=== PATIENT | male | born 1940 | race Caucasian/White ===

== ENCOUNTER 2020-07-27 16:06 | Inpatient (IN) | payer MEDICARE, OTHER ==
[~2020-07-27] VITALS: Ht 182.9 cm; Wt 93.2 kg
[2020-07-27] VITALS (82 sets, daily range): BP systolic 143; BP diastolic 85; PULSE 77; O2SAT 91–99
[~2020-07-27 16:06] MED LIST: ALEVE 220MG220 MG PO; ALLEGRA30 MG; CEPHALEXIN500 M1 PO; CILOXAN 10 ML10 ML OD; FISH OIL SUPER1 SGL PO; LIPITOR 10MG10 MG PO; LUTEIN8MG PO; MULTIVITAMIN1 TA1 PO; NIACIN100 MG PO; PLAVIX 75MG TAB75 MG PO; SYNTHROID0.05 MG/TA PO; TRIGLIDE50 MG PO; ZOCOR 80MG80 MG PO
[2020-07-27 16:27] LABS: HEMATOCRIT 44.8 % (42.0-52.0); HEMOGLOBIN 14.9 g/dl (13.5-18.0); MEAN CELL VOLUME 94 fl (80.0-100.0); MEAN CORPUSCULAR HEMOGLOBIN 31 pg (27.0-31.0); MEAN CORPUSCULAR HGB CONC 33 g/dl (33.0-37.0); MEAN PLATELET VOLUME 9.8 fl (7.4-10.4); PLATELET COUNT 206 K/mm3 (130-400); RED BLOOD COUNT 4.79 M/mm3 (4.20-5.60)
[2020-07-27 16:33] LABS: PROTHROMBIN TIME 11.3 SECONDS (9.7-12.8)
[2020-07-27 16:39] LABS: BAND 1 % (0-10); EOSINOPHIL 27 % (0-4); LYMPHOCYTE 25 % (20.0-51.0); NEUTROPHILS 41 % (42.0-75.2); PLATELET ESTIMATE NORMAL (NORMAL)
[2020-07-27 16:40] LABS: ALANINE AMINOTRANSFERASE 25 U/L (4-49); ALBUMIN 3.8 gm/dL (3.5-5.0); ALKALINE PHOSPHATASE 93 U/L (50-136); ANION GAP 8 mmol/L (7-16); AST,SGOT 27 U/L (15-37); BILIRUBIN,TOTAL < 0.1 mg/dL (0.0-1.0); BLOOD UREA NITROGEN 23 mg/dL (9-20); CALCIUM 8.7 mg/dL (8.4-10.2); CARBON DIOXIDE 25 mmol/L (22-30); CHLORIDE 106 mmol/L (98-107); CREATININE, serum 0.88 (0.66-1.25); GLUCOSE 124 mg/dL (74-106); POTASSIUM 4.1 mmol/L (3.4-5.0); SODIUM 139 mmol/L (137-145); TOTAL PROTEIN 7.4 gm/dL (6.4-8.2)
[2020-07-27 16:42] LABS: C-REACTIVE PROTEIN < 0.5 mg/dL (0.0-0.9)
[2020-07-27 16:56] LABS: COLLECTION METHOD CLEAN CATCH
[2020-07-27 17:03] LABS: MUCOUS Present /lpf; PH 6 (5-8); SQUAMOUS EPITHELIAL 0-2 /hpf; URINE APPEARANCE Clear; URINE BACTERIA None Seen /hpf; URINE BILIRUBIN Negative (NEGATIVE); URINE BLOOD Negative (NEGATIVE); URINE COLOR Yellow; URINE GLUCOSE Negative (NEGATIVE); URINE KETONE Negative (NEGATIVE); URINE LEUKOCYTE ESTERASE Negative (NEGATIVE); URINE NITRATE Negative (NEGATIVE); URINE PROTEIN(semi-quant) Negative (NEGATIVE); URINE RBC 0-2 /hpf; URINE UROBILINOGEN Negative (NEGATIVE)
[2020-07-27] MEDS ORDERED: ZOCOR 40MG40 MG PO (18:14)
[2020-07-27] MEDS ORDERED: FLOMAX 0.40.4 MG/CAP PO (18:15)
[2020-07-27] MEDS ORDERED: GLUCOPHAGE500 MG/TAB PO (18:15)
[2020-07-27] MEDS ORDERED: ASPIRIN 81M81 MG/TA2 PO (18:15)
[2020-07-27] MEDS ORDERED: BENADRYL25 M2 PO (18:16)
[2020-07-27] MEDS ORDERED: XYZAL5 MG PO (18:16)
[2020-07-27] MEDS ORDERED: ONE-A-DAY ESSE1 EACH PO (18:17)
[2020-07-27] MEDS ORDERED: SYNTHROID0.075 MG/T PO (21:15)
[2020-07-27] MEDS ORDERED: GLUCOPHAGE XR500 M1 PO (21:16)
[2020-07-27] MEDS ORDERED: VITAMIN FLUSH-F1 CAP PO (21:17)
[2020-07-27 21:42] LABS: MAGNESIUM 2.2 mg/dL (1.6-2.3); PHOSPHOROUS 3.4 mg/dL (2.5-4.5)
[2020-07-27 22:14] LABS: TSH w REFLEX 1.96 uIU/mL (0.465-4.680)
--- NOTE | 2020-07-27 23:29 | NUR ---
Patient arrived from the ER via stretcher at 2145. He is on room air and oxygen saturation is above 95%. His blood pressure was 143/98 and HR is 68. He denies pain other than on his knee that he has been experiencing for a while, whcih he takes tylenol and an ice pack at home for. I confirmed with Lubna TROY to stop the Nicarapine drip and she said yes, if I need something for blood pressure, I have a labatalol PRN. He has IV fluids running at 75. His neuro status has remained consistant for the last two hours. He does have an asymetrical smile. The left side is still droopy, the left arm and legs does drift a bit. His vision on the left side is better but he still complains of a "fat tongue" since prior to his arrival. Dr [facility] ([facility]) just phoned for an update and update was given.
[2020-07-28] VITALS (478 sets, daily range): BP systolic 140–164; BP diastolic 54–94; PULSE 69–84; TEMP 97.7–98.5; O2SAT 88–99
--- NOTE | 2020-07-28 02:56 | NUR ---
Every hour I've been doing the Neuro checks. The patient stated he doesn't feel any worse, just the same. I did notice a bit more drifting in the left arm but he is still able to squeeze my hands equally and symetrically. Left leg still has a drift. I'm not sure if its becasue it's 3am and the patient is tired, but I noticed a slight stutter in his speech, so I had him read a sentence and he read it just fine. He also took a sip of water, without any spillage or drooling. Blood pressures has been in the 150's, HR is in the 70's and he is on room air.
[2020-07-28 05:30] LABS: HEMATOCRIT 43.5 % (42.0-52.0); HEMOGLOBIN 14.5 g/dl (13.5-18.0); MEAN CELL VOLUME 92 fl (80.0-100.0); MEAN CORPUSCULAR HEMOGLOBIN 31 pg (27.0-31.0); MEAN CORPUSCULAR HGB CONC 33 g/dl (33.0-37.0); MEAN PLATELET VOLUME 9.9 fl (7.4-10.4); PLATELET COUNT 172 K/mm3 (130-400); RED BLOOD COUNT 4.73 M/mm3 (4.20-5.60); REDCELL DISTRIBUTION WIDTH-CV 15.1 % (11.5-14.5)
[2020-07-28 05:40] LABS: CALCIUM 8.3 mg/dL (8.4-10.2); CHOLESTEROL RISK RATIO 4.4; CREATININE, serum 0.74 (0.66-1.25); POTASSIUM 3.9 mmol/L (3.4-5.0)
[2020-07-28 06:17] LABS: ANISOCYTOSIS 1+; BASOPHIL 1 % (0-2); EOSINOPHIL 15 % (0-4); LYMPHOCYTE 22 % (20.0-51.0); NEUTROPHILS 55 % (42.0-75.2); PLATELET ESTIMATE NORMAL (NORMAL)
[2020-07-28 06:18] LABS: HYPOCHROMIA 1+; OVALOCYTES 1+
--- NOTE | 2020-07-28 06:36 | NUR ---
Patient had an otherwise uneventful night. Once he woke up, his symptoms were unchanged from when he was initially admitted. His left arm has a drift and left face has dropping. At 630am he started complaining of a headache. I did give him tylenol around 4am for his knee pain. Otherwise, his vitals are stable. His blood pressure is 127/76, his HR is 74, oxygen saturation is 95% on room air and he breaths about 15 times a minute. He still has the NS running at 75 and his urine output has been about 850cc this shift.
--- NOTE | 2020-07-28 07:05 | NUR ---
RECEIVED REPORT FROM ELENA VARGAS. PT SLEEPING EASILY BUT AROUSES TO VERBAL STIMULI. VSS. CALL LIGHT WITHIN REACH. PT ON RA.
--- NOTE | 2020-07-28 10:20 | NUR ---
DR ALBARADO AT BEDSIDE FOR ASSESSMENT. PHYSICIAN STATES CAN DC IVF AND CHANGE STROKE ASSESSMENT TO Q2HR.
--- NOTE | 2020-07-28 10:54 | NUR ---
SW met with patient to complete intake. Spouse Taisha [phone] present of intake, and assisted with completion of intake due to patient resting. Patient was okay with doing so. Spouse states that they live in [facility], she also states that patient does not utilize a walker or cane at this time, but recognizes that he may need to do so in the future. Spouse states that he did not recieve assistance with ADL's, PCP is Dr. Moody, and pharmacy is [facility]. Patient's spouse provides that she has a copy of the DPOA-HC at home and will plan to bring in a copy for SW some time this week. Plan for patient is unknown at this time spouse provides. SW will continue to follow.
--- NOTE | 2020-07-28 11:15 | NUR ---
DR WHITE AT BEDSIDE FOR ASSESSMENT. BROUGHT TO PHYSICIAN'S ATTENTION ABOUT FAMILY'S CONCERN OF POSSIBLE VISION DEFICIT TO LT SIDE. PHYSICIAN STATES R/T STROKE AND NO DIFFERENT TREATMENT PLAN NECESSARY. PHYSICIAN STATES MRI TOMORROW WILL HELP PINPOINT STROKE AFFECTED AREA IN THE BRAIN AND WILL KNOW MORE ANSWERS THEN.
--- NOTE | 2020-07-28 11:43 | NUR ---
REPORT GIVEN TO ELENA LAMAR ON MEDICAL. PT TO TRANSFER TO [facility] VIA ON RA. ALL PERSONAL BELONGINGS SENT WITH PT. AND DAUGHTER ACCOMPANYING PT.
--- NOTE | 2020-07-28 12:29 | NUR ---
Pt just arrived to the floor from ICU. He is alert although drowsy, per report he had a busy morning with activity and therapy. and daughter are present in the room. He has had and tolerated lunch while still in ICU. Gave ice water, no other needs, will continue to monitor
--- NOTE | 2020-07-28 15:30 | NUR ---
Pt up to use the urinal often. Reports that his headache is gone and is requesting something to eat. Family continues to be present in his room
--- NOTE | 2020-07-28 19:20 | NUR ---
Report received, assumed care for internet marketing assistant. Assisted up to toilet-two assist/gait belt/walker. +med BM. Assessment complete. A&Ox3. Denies shortness of breath/pain/nausea. Noted to have facial drooping to left side-unchanged. Also noted to have left sided weakness-able to raise and lift left arm but slowly drops. Weakness also noted to left lower extremity. Plan of care discussed for this shift to include HS meds/neuro checks/calling for questions/concerns. Verbalizes understanding/denies needs. Call light in reach. Will monitor.
--- NOTE | 2020-07-28 21:00 | NUR ---
Assited with urinal. Voided without difficulty. States he has a dull headache-rating pain 4/10. Tylenol given per dr order. Denies any other questions/concerns. Call light in reach. Will monitor.
--- NOTE | 2020-07-29 00:10 | NUR ---
Assisted with urinal. Stood at side of bed-2 assist/gait belt/walker. Alert and oriented but had tried to get up out of bed without help. Stated he woke up and had to go badly and forgot to call. Assisted back to bed. Repositioned self in bed with minimal help to left side. States he would like to leave support pillow out from left extremity for now. Call light in reach/bed alarm on. Will monitor.
[2020-07-29 03:32] VITALS: BP 154/84; PULSE 72; TEMP 98.2
--- NOTE | 2020-07-29 05:15 | NUR ---
Rested well this shift. Received tylenol x1 for dull headache. DId have a couple elevated BPs but not high enough for medical donation professional per order. Used urinal most of night. Did get up to bathroom with 2 assist/walker/gait belt x2. No incontinence. Plan for MRI/echo this AM. Denies questions/concerns. Call light in reach/bed alarm on. Will monitor.
--- NOTE | 2020-07-29 06:20 | NUR ---
ELENA Wilson from Radiology at bedside to discuss MRI this AM.
[2020-07-29 07:21] VITALS: BP 149/92; PULSE 73; TEMP 98.4
--- NOTE | 2020-07-29 07:34 | NUR ---
Patient resting in bed at this time. Patient C/O headache, tylenol given by ELENA Villaseñor. Patient denies any further pain, discomfort, or needs at this time. Will continue to monitor. Call light within reach. Fall percautions in place.
--- NOTE | 2020-07-29 10:03 | NUR ---
Patient taken down for MRI.
[2020-07-29] MEDS ORDERED: TYLENOL 325MG325 MG PO (11:09)
[2020-07-29] MEDS ORDERED: LOVENOX 4040 MG/0.4 SQ (11:09)
--- NOTE | 2020-07-29 11:18 | NUR ---
Patient back from MRI. Scheduled meds given. Assessment performed. Patient being screened for IPR. Patient denies any pain, discomfort, or needs at this time. and daughter at the bedside. Will continue to monitor. Call light within reach. Fall percautions in place.
[2020-07-29 12:31] VITALS: BP 128/88; PULSE 80; TEMP 98.4
--- NOTE | 2020-07-29 12:45 | NUR ---
An IPR consult was ordered. Janice, with IPR, reports that they have accepted the patient. The patient is to discharge today, 07/29. No additional needs at this time.
--- NOTE | 2020-07-29 12:49 | NUR ---
First visit from the quantitative researcher. No needs right now
[2020-07-29 14:08] VITALS: BP 128/88; PULSE 80; TEMP 98.4
--- NOTE | 2020-07-29 14:23 | NUR ---
Patient being transferred to [facility]. VS stable. Patient has required no insulin from me today. Patient A&O. Report given to ELENA Sheikh. Patient does not C/O any pain, discomfort or needs at this time.
[2020-07-30] MEDS ORDERED: MASON NATURAL2000 IU PO (09:51)
== END 2020-07-29 14:28 | DRG 64 ==
LOC: COL.ER 16:06 → ICU 17:52 → MEDICAL 07-28 12:15
PROVIDERS: Family Medicine; Nurse Practitioner Family; ADMIT Hospitalist
DX: I63.131 Cerebral infarction due to embolism of right carotid artery (principal); I50.33 Acute on chronic diastolic (congestive) heart failure; G81.94 Hemiplegia, unspecified affecting left nondominant side; R29.810 Facial weakness; H53.8 Other visual disturbances; E78.5 Hyperlipidemia, unspecified; E03.9 Hypothyroidism, unspecified; N40.0 Benign prostatic hyperplasia without lower urinary tract symptoms; E11.42 Type 2 diabetes mellitus with diabetic polyneuropathy; R29.704 NIHSS score 4; Z86.73 Personal history of transient ischemic attack (TIA), and cerebral infarction without residual deficits; Z79.82 Long term (current) use of aspirin; Z79.02 Long term (current) use of antithrombotics/antiplatelets; Z79.84 Long term (current) use of oral hypoglycemic drugs
CPT/HCPCS: 99233-AI; 99239; A9585; J1650; J7030; J7050; Q9967

== ENCOUNTER 2020-07-29 13:37 | Inpatient (IN) | payer MEDICARE, OTHER ==
[~2020-07-29] VITALS: Ht 182.9 cm; Wt 92.1 kg
[~2020-07-29 13:37] MED LIST changes: +ASPIRIN 81M81 MG/TA2 PO; +BENADRYL25 M2 PO; +FLOMAX 0.40.4 MG/CAP PO; +GLUCOPHAGE XR500 M1 PO; +GLUCOPHAGE500 MG/TAB PO; +LOVENOX 4040 MG/0.4 SQ; +ONE-A-DAY ESSE1 EACH PO; +SYNTHROID0.075 MG/T PO; +TYLENOL 325MG325 MG PO; +VITAMIN FLUSH-F1 CAP PO; +XYZAL5 MG PO; +ZOCOR 40MG40 MG PO
[2020-07-29 17:26] VITALS: BP 146/90; PULSE 78; TEMP 98.3
--- NOTE | 2020-07-29 18:39 | NUR ---
PT ADMITTED TO [facility] AT 1430, BROUGHT FROM ROOM 314 TO 338 BY THIS NURSE. ORIENTED TO UNIT, ASSESSED, ADMISSION PAPERWORK SIGNED, MED REC COMPLETED, ORDERS SET INITIATED, WELL PLAN OF CARE. PT VOIDING FREQUENTLY, IS ON FLOMAX DUE TO BPH, URINE IS CLEAR AND YELLOW. NO SKIN ISSUES. SHALLOW BREATHS WITH DIMINISHED BASES. PT NEEDS LOTS OF CUEING WITH TRANSFERS BUT DOES WELL WITH 1 ASSIST, FWW, AND GAITBELT.
[2020-07-30 03:27] VITALS: BP 142/89; PULSE 66; TEMP 98
--- NOTE | 2020-07-30 05:50 | NUR ---
Patient stood to use urinal to void throughout the night with one assist. Ambulated with gait belt, walker, and one assist. Tylenol provided PRN for pain. Bed alarm on and call light in reach.
--- NOTE | 2020-07-30 08:22 | NUR ---
Patient resting in bed, call light in reach and alarm set. Patient's family is by his side at this time. Will continue to monitor.
[2020-07-30] MEDS ORDERED: MASON NATURAL2000 IU PO (09:51)
--- NOTE | 2020-07-30 10:26 | NUR ---
Radar Engineer met with patient to complete initial intake as patient is new to [facility]. Patient's , Taisha (ph#[phone]) is at bedside. Patient lives in [place] with his , Taisha and sees Dr. Moody for primary care. Patient obtains medications from [facility] with no difficulties and normally does not use any DME. Taisha advised that she understands patient will likely need DME upon discharge. Patient has DPOA-HC and a copy was placed on patient's chart yesterday after admission. SW will continue to follow for discharge recommendations and needs.
--- NOTE | 2020-07-30 11:29 | NUR ---
Patient working with OT, getting a shower at this time. Patient's bottom was red, but blanchable. Will continue to monitor.
[2020-07-30 17:24] VITALS: BP 119/83; PULSE 77; TEMP 98
--- NOTE | 2020-07-30 19:46 | NUR ---
Patient's family came early this morning to stay with patient. His brought in his home medication for allergies. This was sent to pharmacy. Patient also gets Vitamin D3 daily and this was added to his home med list. Patient given prn tylenol to help with headache this shift. He attended all his therapies. He was a one assist with a walker for ambulation.
[2020-07-31 04:21] VITALS: BP 131/86; PULSE 75; TEMP 97.6
--- NOTE | 2020-07-31 05:19 | NUR ---
PATIENT RESTED QUIETLY IN BED THROUGOUT THE NIGHT. PATIENT AMBULATING WELL WITH GAIT BELT, WALKER, AND SBA. NO NEW ISSUES NOTED OR REPORTED BY PATIENT. PATIENT UP TO BATHROOM THREE TIMES THROUGHOUT THE SHIFT.
--- NOTE | 2020-07-31 08:10 | NUR ---
Patient resting in recliner, call light in reach and bed alarm set.
--- NOTE | 2020-07-31 12:55 | NUR ---
Patient reported to staff that his left cheek was going numb. This nurse went in to assess patient and the following vitals were completed: T 97.6, P 79, R 20, O2 95 on RA, BP 127/74. Patient was slurring his words more and had more left cheek facial drooping. He was also reporing some tiredness. Dr. Carmona was called and he started patient on Stroke protocol and patient was assessed by Provider GISSELLE Arriaga. Patient was placed on Q 2 Hour neuro checks at this time. Patient's afternoon therapies were placed on hold and patient is resting in recliner, with family by his side. Will continue to monitor.
--- NOTE | 2020-07-31 16:34 | NUR ---
Patient's blood sugars have been in the normal range and family reported that patient was considered pre-diabetic. See new order for patient to have his ACHS accuchecks DC'd at this time, per GISSELLE Arriaga. Dr. Carmona spoke with neurology and there are no tests ordered per neurology at this time. Dr. Carmona did order Tele and patient will be monitored while he is here. Per Tele protocol 22 G IV was placed to patient's right forearm with no complications.
--- NOTE | 2020-07-31 16:39 | NUR ---
Accreditation Manager met with patient to provide copy of team conference notes. SW advised patient and his that he will be re-evaluated next week.
[2020-07-31 16:46] VITALS: BP 133/83; PULSE 78; TEMP 98.2
--- NOTE | 2020-07-31 16:46 | NUR ---
Neuro checks were changed from Q 2 Hr to Q 4 HR per GISSELLE Arriaga. See new order.
[2020-07-31 22:38] VITALS: BP 129/82; PULSE 79; TEMP 98
[2020-08-01] VITALS (7 sets, daily range): BP systolic 109–138; BP diastolic 61–79; PULSE 72–96; TEMP 97.6–98.6
--- NOTE | 2020-08-01 05:23 | NUR ---
NO NEW ISSUES NOTED OR REPORTED BY PATIENT THROUGHOUT THE SHIFT. PATIENT AMBULATED WITH THE WALKER AND GAIT BELT TO THE BATHROOM SEVERAL TIMES THROUGHOUT THE SHIFT WITH NO ISSUES.
--- NOTE | 2020-08-01 13:38 | NUR ---
Admission QIM scores were reviewed by the team. Code of 4 chosen for oral hygiene was determined by team discussion to be the most usual performance before interventions for this patient during the assessment period. Code of 3 chosen for toilet hygiene was determined by team discussion to be the most usual performance for this patient during the assessment period. Code of 3 for sit to stand was determined by team discussion to be the most usual performance for this patient during the assessment period. Code of 3 chosen for walk 10 feet was determined by team discussion to be the most usual performance for this patient during the assessment period.--Diana Melo, PD
[2020-08-02 05:46] VITALS: BP 118/72; PULSE 70; TEMP 99.4
--- NOTE | 2020-08-02 06:18 | NUR ---
PT HAS VOIDED PER URINAL APRROX Q 2HR. PT RELATES THIS IS NORMAL FOR HIM. NO S/S UTI. DRIBBLES SOME IN BRIEFS. CHANGED TO DIAPER. PT DENIES PAIN. NO CHANGE IN NEURO STATUS THIS SHIFT.
[2020-08-02 07:58] VITALS: BP 123/68; PULSE 91; TEMP 97.9
--- NOTE | 2020-08-02 09:12 | NUR ---
Initial visit; Patient thanked Railroad Construction Director for looking in on him, offering God's blessings and keeping him in Railroad Construction Director's prayers.
[2020-08-02 16:00] VITALS: BP 120/70; PULSE 90; TEMP 97.4
--- NOTE | 2020-08-02 16:04 | NUR ---
Catalogue Maker followed up with patient and patient's before the weekend. SW provided [facility] paperwork which was completed by MIKI Ortiz Director. Patient's denies any questions or concerns at this time. SW placed a copy of [facility] paperwork in patient's chart.
[2020-08-02 18:00] VITALS: BP 116/77; PULSE 79; TEMP 98.2
--- NOTE | 2020-08-02 19:00 | NUR ---
VIA SHIFT REPORT FROM ANNETTE SEGURA IT WAS REPORTED NEUROCHECKS HAVE BEEN DC'D.
--- NOTE | 2020-08-02 19:43 | NUR ---
Patient attended all therapies this shift. He tolerated diet well. When flushing patients Rt Forearm IV this morning the vein blew so it was removed. Patient continues on Tele see reports. Patient has been stable with neuro checks at this time. Q4HR neuros were DC'd per provider. Patient's was transfered from room #338 to room #337 due to their being a leak coming from the bathroom of room #338 and leaking into the room below. Patient's belongings were transfered with the assistance of the patient's . Patient currently resting in bed, call light in reach and bed alarm set. Reported off to night nurse.
--- NOTE | 2020-08-02 20:00 | NUR ---
CHAIR ALARM SOUNDING PT TRANSFERRRED HIMSELF FROM RECLINER TO BED. PROMOTED SAFETY PRECAUTIONS. PT AGREED.
--- NOTE | 2020-08-02 21:00 | NUR ---
BED ALARM SOUNDING. FOUND PT SITTING ON SIDE OF BED. HAS TO VOID.
--- NOTE | 2020-08-02 22:12 | NUR ---
NOTIFIED Viktoria PITTS REGARDING STATUS OF TELEMENTRY. PT HAS BEEN IN SR. IV HAD INFILTRATED ON LAST SHIFT. PT DECLINED ANOTHER IV. NEW ORDERS TO DC TELE. TELE DC'D.
[2020-08-03 05:44] VITALS: BP 119/73; PULSE 74; TEMP 98.1
[2020-08-03 17:40] VITALS: BP 117/80; PULSE 76; TEMP 97.5
--- NOTE | 2020-08-03 18:29 | NUR ---
NO COMPLAINTS FROM PT TODAY. URINARY FREQUENCY AND URGENCY HAS LESSENED. PT CONTINUING TO IMPROVE, TOOK PILLS WHOLE ONE AT A TIME WITH WATER. COMPARED TO TWO DAYS AGO HE HAD TROUBLE SWALLOWING THEM ONE AT AT TIME WITH APPLESAUCE OR WATER.
--- NOTE | 2020-08-03 20:00 | NUR ---
PT SITTING IN RECLINER LISTENING TO [employer] STATE BALLGAME. LT SIDED WEAKNES. PT CAN BE IMPULSIVE AT TIMES. A&OX4. DENIES PAIN. CALL LIGHT IN REACH. CHAIR ALARM SET.
[2020-08-04 05:28] VITALS: BP 132/79; PULSE 81; TEMP 98
--- NOTE | 2020-08-04 06:44 | NUR ---
Sitting up in chair with eyes open watching TV. Alert and oriented x4. Denies pain at this time. Left marketing information analyst slightly weaker than the right marketing information analyst. Bruising noted on abd from Lovenox injections. Patient denies needs or concerns at this time.
--- NOTE | 2020-08-04 09:05 | NUR ---
Patient ambulates twice around IPR/Surg floor. Gait wobbly at times. Patient says that he feels good walking. Returns to room and sits up in chair to work on crossword puzzles. Denies additional needs.
--- NOTE | 2020-08-04 16:27 | NUR ---
Sitting up in chair talking with family. Denies pain or any needs at this time.
[2020-08-04 17:40] VITALS: BP 117/77; PULSE 74; TEMP 97.9
--- NOTE | 2020-08-04 19:30 | NUR ---
FAMILY HERE VISITING. PT SITTING IN RECLINER. CALL LIGHT IN REACH. CAHIR ALARM SET.
[2020-08-05 05:26] VITALS: BP 115/84; PULSE 93; TEMP 97.4
--- NOTE | 2020-08-05 05:28 | NUR ---
ASSISTED TO BR. SAFETY CUING REQUIRED. PT ABLE TO DRESS SELF BUT FORGETFUL OF WHAT ORDER HE IS DOING IT IN. SITTING UP TO SINK FOR AM CARES PERFORMED PER SELF. TRANSFERRED TO RECLINER. CHAIR ALARM SET. CALL LIGHT IN REACH.
--- NOTE | 2020-08-05 08:05 | NUR ---
Patient sitting up in recliner, alert and oriented x 3. Assessment complete. Denies pain at this time. Denies further needs at this time.
--- NOTE | 2020-08-05 15:26 | NUR ---
Patient doing well, denies pain at this time. Mod I in room at this time. Denies further needs at this time. Reported off to Corina PARKER.
[2020-08-05 15:35] VITALS: BP 122/76; PULSE 79; TEMP 98.1
--- NOTE | 2020-08-05 15:42 | NUR ---
Report received from ELENA Kaur. Patient sitting up in chair visiting with in room. Denies pain. Patient is happy that they made him MOD I in room and that they are looking at him going home on Wednesday. Patient denies additional needs or concerns at this time.
--- NOTE | 2020-08-05 15:43 | NUR ---
Liquor Stores And Agencies Supervisor met with patient and patient's to follow up from the weekend. Discharge date has been set for 08/08/20 and recommendation is for outpatient PT/OT/ST. YAZMIN scheduled a family meeting for tomorrow, 08/06/20 @ 1300. Patient's children Kevin Estevez (ph#[phone]) and Kar Reilly (ph#[phone]) will participate by phone. Patient is agreeable to have outpatient appointments set up at [facility] as they have all three therapies. YAZMIN to schedule appointments.
--- NOTE | 2020-08-05 17:32 | NUR ---
Sitting up in chair with eyes open watching TV and visiting with in room. Just finished dinner. Denies needs or concerns at this time.
--- NOTE | 2020-08-06 00:01 | NUR ---
2039- ASSESSMENT COMPLETE. DENIES PAIN, SOA OR DIZZY. LT ARM WEAKER THAN RT. ABLE TO LIFT AND HOLD LEGS. LT SIDE VISUAL DEFECT. PM MEDS GIVEN. WATER REFILL. DENIES OTHER NEEDS AT THIS TIME. PLAN OF CARE DISCUSSED. CALL LIGHT WI REACH.
--- NOTE | 2020-08-06 05:55 | NUR ---
RESTED THROUGH THE NIGHT WITHOUT INCIDENT. PT WAS UPSET ABOUT BEING WOKE UP FOR AM VITALS AND WAS ALSO UPSET LAST NIGHT ABOUT NOT GETTING A SNACK REQUESTED FAST ENOUGH. CHARGE NURSE SPOKE W PT ABOUT INCIDENT AND APOLIGIZED PT LATER ASKED TO SPEAK TO CHARGE SO HE COULD APOLIGIZE HE STATES HE MAY HAVE BEEN RUDE.
--- NOTE | 2020-08-06 10:18 | NUR ---
PT DENIED PAIN THIS AM UPON ASSESSMENT, WAS LATER CALLLED TO ROOM AND PT C/O FEELING FLUSH. STATES HE USED TO HAVE THIS ISSUE WHEN HE STARTED TAKING NIACIN THAT WAS NOT SLOW RELEASE, ONCE CHANGED OVER HE NO LONGER HAD THE ISSUE. PT IS CURRENTLY ON SLOW ABSOPRTION NIACIN. PT DOES NOT C/O ANY OTHER SYMPTOMS WITH FLUSH AND REFUSED COLD WASHCLOTH OR ICE. WILL UPDATE WHEN HE ROUNDS.
--- NOTE | 2020-08-06 12:20 | NUR ---
Charter Boat Captain scheduled outpatient PT/OT/ST appointments with [facility] [address] ([place] [place]). 08/14- PT (1430), OT (1530) and 08/29- ST (1100). YAZMIN provided appointments to ELENA Sheikh to be included in discharge information. SW to fax clinical information and orders to fax#[phone].
--- NOTE | 2020-08-06 13:00 | NUR ---
A Family Conference was conducted with pt & pt's & son, Kevin, & daughter, Kar, via speaker phone. Also present was PT, OT, ST, & Installment Agent. Installment Agent started by explaining the purpose of the meeting. The therapists explained how pt has been functioning & making good progress. Informed them of d/c for , 08/08/20 w/ recommendations for outpatient PT/OT/ST. They asked questions which team answered. Pt & family are pleased with progress & care pt is receiving.
[2020-08-06 15:57] VITALS: BP 119/6; PULSE 74; TEMP 98
--- NOTE | 2020-08-06 18:15 | NUR ---
SINAN PITTS WAS NOTIFIED OF PT'S FLUSHING EPISODE THIS AM. HE SHARED WITH HER THAT HE FELT SOMEWHAT CONSTIPATED SO MIRALAX WAS GIVEN IN APPLE JUICE. SINAN STATED THAT PT WAS INTENDED TO REMAIN ON TELE FOR DURATION OF HOSPITALIZATION AFTER LAST NEUROLOGIC INCIDENT WELL IV ACCESS MAINTAINED. TELE WAS RESTARTED TODAY AND IV TO LEFT FOREARM STARTED.
--- NOTE | 2020-08-06 22:31 | NUR ---
2015- ALERT AND OX3. RATING PAIN 4/10 HEADACHE. TYLENOL GIVEN. PM MEDS. DENIES SOA, CHEST PAIN OR DIZZY. PLAN OF CARE DISCUSSED. CALL LIGHT WI REACH. BED IN LOW POSTION. NEURO- LT SIDE SLIGHT WEAK CITY MANAGER. TELE IN PLACE. IV TO LT FA FLUSHED. NEEDS MET
[2020-08-07 04:25] VITALS: BP 115/78; PULSE 70; TEMP 98
--- NOTE | 2020-08-07 05:32 | NUR ---
rested through the night without incident. needs met./
[2020-08-07 08:17] VITALS: BP 113/73; PULSE 92; TEMP 98.5
--- NOTE | 2020-08-07 08:55 | NUR ---
Patient independent in room, call light in reach and by his side. Will continue to monitor.
[2020-08-07 11:36] VITALS: BP 136/82; PULSE 83; TEMP 98.9
[2020-08-07] MEDS ORDERED: LIPITOR 40MG TA40 MG PO (12:49)
[2020-08-07] MEDS ORDERED: METAMUCIL3.4 GM/DOS PO (12:53)
[2020-08-07] MEDS ORDERED: MIRALAX PA17 GM/Dose PO (12:54)
--- NOTE | 2020-08-07 14:19 | NUR ---
Machine Deicer Element Winder met with patient and patient's , Taisha to provide copy of team conference notes. SW also provided appointment dates/times for patient's outpatient PT/OT/ST appointments at [facility]. SW presented and reviewed IM form to patient who verbalized understanding and provided signature. SW placed form in chart and provided copy to patient.
--- NOTE | 2020-08-07 14:45 | NUR ---
Patient independent in his room. He is currently in his room with by his side. Patient will be discharging tomorrow afternoon to his home. He attended all his therapies this shift. Tolerated diet well this morning and afternoon. Denies questions at this time. Will continue to monitor.
[2020-08-07 15:55] VITALS: BP 122/84; PULSE 74; TEMP 98.6
[2020-08-07 20:00] VITALS: BP 114/62; PULSE 72; TEMP 98.4
--- NOTE | 2020-08-07 20:47 | NUR ---
PT RESTING IN BED. INDEPENDENT IN ROOM. PT REPORTS FEELS SAFE. ENC TO CALL IF NEEDING ASSIST. TELEMENTRY CONTINUES- SR 83BPM. INT LT F/A FLUSHES WELL. LT SIDED WEAKNESS. REPORTS HAD BM TODAY. NO NEED AT THIS TIME. CALL LIGHT IN REACH.
[2020-08-08] VITALS: BP 118/77; PULSE 65; TEMP 97.8
[2020-08-08 03:48] VITALS: BP 122/73; PULSE 80; TEMP 98.4
--- NOTE | 2020-08-08 04:29 | NUR ---
PT AWAKE. UP ABOUT IN ROOM FOR AM CARES. PT RELATED DIDNT REALIZE IT WAS SO EARLY. BACK TO BED FOR NOW. CALL LIGHT IN REACH.
--- NOTE | 2020-08-08 08:49 | NUR ---
Removed INT to left forearm prior to patient discharge this morning. Tele will be stopped as well. Will continue to monitor.
--- NOTE | 2020-08-08 09:44 | NUR ---
Patient Health Summary, Discharge Summary, and Home Meds printed and reviewed with patient and . Stressed importance of follow up appointments. Belongings gathered by YURI/Ed including Cane, Cellphone, dough molder, Ipad, jacket, dirty clothes, Dop kit and misc. personal items. Patient transported via walking with gait belt by Jt and seatbelted for ride home with . Patient and denied questions.
--- NOTE | 2020-08-08 10:23 | NUR ---
Rfid Specialist faxed H&P, therapy notes, and discharge orders to [facility]. Patient to discharge home today with outpatient PT/OT/ST.
== END 2020-08-08 09:45 | disposition home or self-care (01) | DRG 57 ==
PROVIDERS: ADMIT Internal Medicine
DX: I69.354 Hemiplegia and hemiparesis following cerebral infarction affecting left non-dominant side (principal); E03.9 Hypothyroidism, unspecified; I69.328 Other speech and language deficits following cerebral infarction; I69.392 Facial weakness following cerebral infarction; E11.9 Type 2 diabetes mellitus without complications; N40.0 Benign prostatic hyperplasia without lower urinary tract symptoms; R26.9 Unspecified abnormalities of gait and mobility; K59.00 Constipation, unspecified; J30.2 Other seasonal allergic rhinitis; E78.5 Hyperlipidemia, unspecified; Z79.82 Long term (current) use of aspirin; Z79.84 Long term (current) use of oral hypoglycemic drugs
CPT/HCPCS: 99222-AI; 99231-AI; 99232-AI; 99238; J1650

== ENCOUNTER 2020-10-31 10:45 | Outpatient (RCR) | payer MEDICARE, OTHER ==
[~2020-10-31 10:45] MED LIST changes: +LIPITOR 40MG TA40 MG PO; +MASON NATURAL2000 IU PO; +METAMUCIL3.4 GM/DOS PO; +MIRALAX PA17 GM/Dose PO
[2020-11-01] MEDS ORDERED: LIPITOR 80MG80 MG PO (11:02)
== END 2020-11-12 | disposition home or self-care (01) ==
LOC: WSST
DX: I69.344 Monoplegia of lower limb following cerebral infarction affecting left non-dominant side (principal); I69.398 Other sequelae of cerebral infarction; R26.89 Other abnormalities of gait and mobility; I69.991 Dysphagia following unspecified cerebrovascular disease; R13.12 Dysphagia, oropharyngeal phase; I69.954 Hemiplegia and hemiparesis following unspecified cerebrovascular disease affecting left non-dominant side; I69.812 Visuospatial deficit and spatial neglect following other cerebrovascular disease

== ENCOUNTER 2020-11-01 06:38 | Outpatient (CLI) | payer MEDICARE, OTHER ==
[~2020-11-01] VITALS: Ht 183 cm; Wt 87.4 kg
[2020-11-01 07:23] VITALS: BP 117/78; PULSE 66; TEMP 98
[2020-11-01 07:23] LABS: HEMOGLOBIN 16.7 g/dl (13.5-18.0); INR 1.1 (0.8-3.0); MEAN CELL VOLUME 94 fl (80.0-100.0); MEAN CORPUSCULAR HEMOGLOBIN 31 pg (27.0-31.0); MEAN CORPUSCULAR HGB CONC 33 g/dl (33.0-37.0); MEAN PLATELET VOLUME 10.1 fl (7.4-10.4); PLATELET COUNT 182 K/mm3 (130-400); PROTHROMBIN TIME 11.9 SECONDS (9.7-12.8); RED BLOOD COUNT 5.32 M/mm3 (4.20-5.60); REDCELL DISTRIBUTION WIDTH-CV 13.3 % (11.5-14.5)
[2020-11-01 07:29] LABS: CREATININE, serum 0.87 (0.66-1.25); POTASSIUM 4.2 mmol/L (3.4-5.0)
[2020-11-01 10:30] VITALS: BP 119/77; PULSE 73
--- NOTE | 2020-11-01 10:45 | NUR ---
Pt alert and at bedside after conclusion of procedure, food and drink provided per request. Denies needs, will continue to monitor.
[2020-11-01 11:00] VITALS: BP 119/77; PULSE 73
[2020-11-01] MEDS ORDERED: LIPITOR 80MG80 MG PO (11:02)
[2020-11-01 11:15] VITALS: BP 128/81; PULSE 79
[2020-11-01 11:30] VITALS: BP 125/75; PULSE 80
[2020-11-01 11:45] VITALS: BP 119/77; PULSE 76
--- NOTE | 2020-11-01 12:12 | NUR ---
Pt discharge completed at this time. PT received dishcarge packet, reviewed f/u appointments, new equipment for loop recorder to take home. Called [employer] in shift lab technician to verify home educatio regarding equipment. INT dc'd ,tip intact. PT able to escort out with myself and Taisha, left with all belongings. to drive home, criteria met.
== END 2020-11-01 11:50 | disposition home or self-care (01) ==
LOC: COL.RAD 06:38
PROVIDERS: Internal Medicine Adult Congenital Heart Disease
DX: I63.9 Cerebral infarction, unspecified (principal); Z20.822 Contact with and (suspected) exposure to COVID-19; Z94.89 Other transplanted organ and tissue status; I70.0 Atherosclerosis of aorta; I34.0 Nonrheumatic mitral (valve) insufficiency
CPT/HCPCS: C1764; J2704; J7120

== ENCOUNTER 2020-11-14 11:30 | Outpatient (RCR) | payer MEDICARE, OTHER ==
[~2020-11-14 11:30] MED LIST changes: +LIPITOR 80MG80 MG PO
== END 2020-11-14 15:20 | disposition home or self-care (01) ==
LOC: WSST 11:30
DX: R41.841 Cognitive communication deficit (principal); I69.954 Hemiplegia and hemiparesis following unspecified cerebrovascular disease affecting left non-dominant side

== ENCOUNTER 2021-01-21 09:45 | Outpatient (RCR) | payer MEDICARE, OTHER | END 2021-01-21 11:58 | disposition home or self-care (01) | LOC: MKS.ESL.PT 09:45 | DX: E11.40 Type 2 diabetes mellitus with diabetic neuropathy, unspecified (principal) ==

== ENCOUNTER 2021-08-13 12:52 | Outpatient (RCR) | payer MEDICARE, OTHER | END 2021-08-16 | disposition home or self-care (01) | LOC: WSST | DX: I69.328 Other speech and language deficits following cerebral infarction (principal); R41.3 Other amnesia ==

== ENCOUNTER 2022-02-13 13:09 | Outpatient (RCR) | payer MEDICARE, OTHER ==
[~2022-02-13 13:09] MED LIST changes: +THE MEDICINE S200 M2 PO; +TOPROL XL 25MG25 MG PO
== END 2022-02-16 | disposition home or self-care (01) ==
LOC: MKS.ESL.OT
DX: I69.352 Hemiplegia and hemiparesis following cerebral infarction affecting left dominant side (principal)

== ENCOUNTER → 2022-06-01 | Outpatient (CLI) | payer MEDICARE, OTHER | LOC: COL.RAD 08:16 | DX: M16.0 Bilateral primary osteoarthritis of hip (principal); S72.002A Fracture of unspecified part of neck of left femur, initial encounter for closed fracture; G60.9 Hereditary and idiopathic neuropathy, unspecified; R73.03 Prediabetes ==

== ENCOUNTER → 2022-06-19 | Outpatient (CLI) | payer MEDICARE, OTHER | LOC: COL.RAD 11:52 | DX: M25.552 Pain in left hip (principal) | CPT/HCPCS: J3301; Q9967 ==

== ENCOUNTER → 2022-07-16 | Outpatient (CLI) | payer MEDICARE, OTHER | LOC: COL.RAD 07:03 | DX: N44.2 Benign cyst of testis (principal) ==